=== PATIENT | female | born 1975 | race Caucasian/White ===

== ENCOUNTER 2016-05-23 03:23 | Emergency (ER) | payer SELFPAY ==
[2016-05-23 05:07] LABS: HEMOGLOBIN 8.4 gm/dl (12.3-15.3); RED BLOOD COUNT 4.28 M/UL (4.00-5.10); WHITE BLOOD COUNT 9.2 K/UL (4.5-11.0)
[2016-05-23 05:18] LABS: BUN/CREATININE RATIO 13 (0-10)
== END 2016-05-23 06:40 | disposition home or self-care (01) ==
LOC: ER1 03:23
PROVIDERS: Physician Assistant
DX: G89.29 Other chronic pain (principal); M25.512 Pain in left shoulder; D64.9 Anemia, unspecified; E06.3 Autoimmune thyroiditis; Z90.89 Acquired absence of other organs
CPT/HCPCS: 36415; 80053; 85025; 96361; 96365; 99283; J2550; J7030; J7050

== ENCOUNTER → 2020-02-07 | Outpatient (CLI) | payer BC, OTHER ==
[~2020-02-07] MED LIST: CIPRO500 MG PO; FLOMAX0.4 MG PO; OMNICEF 300 MG300 MG PO; PERCOCET 5/325 T1 EA PO
[2020-02-07 11:13] LABS: HEMOGLOBIN 11.1 gm/dl (12.3-15.3); RED BLOOD COUNT 3.64 M/UL (4.00-5.10)
[2020-02-07 11:31] LABS: BUN/CREATININE RATIO 11 (0-10)
== END ==
LOC: OPSV 10:00
PROVIDERS: Hospitalist
DX: C91.01 Acute lymphoblastic leukemia, in remission (principal)
CPT/HCPCS: 80053; 85025

== ENCOUNTER → 2020-02-14 | Outpatient (CLI) | payer BC, OTHER ==
[2020-02-14 10:29] LABS: HEMOGLOBIN 11.1 gm/dl (12.3-15.3); RED BLOOD COUNT 3.75 M/UL (4.00-5.10); WHITE BLOOD COUNT 4.5 K/UL (4.5-11.0)
[2020-02-14 11:15] LABS: BUN/CREATININE RATIO 14 (0-10)
== END ==
LOC: OPSV 10:00
PROVIDERS: Hospitalist
DX: C91.01 Acute lymphoblastic leukemia, in remission (principal)
CPT/HCPCS: 80053; 85025

== ENCOUNTER → 2020-02-21 | Outpatient (CLI) | payer BC, OTHER ==
[2020-02-21 10:53] LABS: HEMOGLOBIN 11.5 gm/dl (12.3-15.3); RED BLOOD COUNT 3.84 M/UL (4.00-5.10); WHITE BLOOD COUNT 6.9 K/UL (4.5-11.0)
[2020-02-21 11:24] LABS: BUN/CREATININE RATIO 23 (0-10)
== END ==
LOC: OPSV 10:00
PROVIDERS: Hospitalist
DX: C91.01 Acute lymphoblastic leukemia, in remission (principal); Z45.2 Encounter for adjustment and management of vascular access device
CPT/HCPCS: 80053; 85025

== ENCOUNTER → 2020-02-28 | Outpatient (CLI) | payer BC, OTHER ==
[2020-02-28 10:36] LABS: HEMOGLOBIN 12.3 gm/dl (12.3-15.3); RED BLOOD COUNT 4.2 M/UL (4.00-5.10); WHITE BLOOD COUNT 4.6 K/UL (4.5-11.0)
[2020-02-28 11:00] LABS: BUN/CREATININE RATIO 20 (0-10)
== END ==
LOC: OPSV 10:00
PROVIDERS: Hospitalist
DX: C91.01 Acute lymphoblastic leukemia, in remission (principal)
CPT/HCPCS: 80053; 85025

== ENCOUNTER → 2020-03-06 | Outpatient (CLI) | payer BC, OTHER ==
[2020-03-06 10:50] LABS: HEMOGLOBIN 10.8 gm/dl (12.3-15.3); RED BLOOD COUNT 3.69 M/UL (4.00-5.10); WHITE BLOOD COUNT 3.1 K/UL (4.5-11.0)
[2020-03-06 11:16] LABS: BUN/CREATININE RATIO 15 (0-10)
== END ==
LOC: OPSV 10:00
PROVIDERS: Hospitalist
DX: C91.01 Acute lymphoblastic leukemia, in remission (principal); Z88.8 Allergy status to other drugs, medicaments and biological substances; Z91.040 Latex allergy status
CPT/HCPCS: 80053; 85025

== ENCOUNTER → 2020-04-24 | Outpatient (CLI) | payer BC, OTHER ==
[2020-04-24 14:07] LABS: HEMOGLOBIN 12.8 gm/dl (12.3-15.3); RED BLOOD COUNT 4.55 M/UL (4.00-5.10); WHITE BLOOD COUNT 1.9 K/UL (4.5-11.0)
[2020-04-24 14:34] LABS: BUN/CREATININE RATIO 22 (0-10)
== END ==
LOC: LAB 13:26
PROVIDERS: Nurse Practitioner Family
DX: C91.00 Acute lymphoblastic leukemia not having achieved remission (principal)
CPT/HCPCS: 36415; 80053; 83615; 85025

== ENCOUNTER → 2020-05-31 | Outpatient (CLI) | payer BC, OTHER ==
[2020-05-31 15:17] LABS: HEMOGLOBIN 12.1 gm/dl (12.3-15.3); RED BLOOD COUNT 4.45 M/UL (4.00-5.10); WHITE BLOOD COUNT 5.6 K/UL (4.5-11.0)
[2020-05-31 15:37] LABS: BUN/CREATININE RATIO 13 (0-10)
== END ==
LOC: LAB 14:33
PROVIDERS: Nurse Practitioner Family
DX: C91.00 Acute lymphoblastic leukemia not having achieved remission (principal)
CPT/HCPCS: 36415; 80053; 83615; 85025

== ENCOUNTER 2020-07-11 12:05 | Emergency (ER) | payer BC, OTHER ==
[~2020-07-11 12:05] MED LIST changes: -CIPRO500 MG PO
[2020-07-11 12:42] LABS: HEMOGLOBIN 13.5 gm/dl (12.3-15.3); RED BLOOD COUNT 4.8 M/UL (4.00-5.10); WHITE BLOOD COUNT 3.3 K/UL (4.5-11.0)
[2020-07-11 13:12] LABS: BUN/CREATININE RATIO 9 (0-10)
[2020-07-11] MEDS ORDERED: CIPRO500 MG PO (18:13)
== END 2020-07-11 19:05 | disposition home or self-care (01) ==
LOC: ER1 12:05
PROVIDERS: Physician Assistant
DX: K80.00 Calculus of gallbladder with acute cholecystitis without obstruction (principal); Z90.89 Acquired absence of other organs; Z79.899 Other long term (current) drug therapy
CPT/HCPCS: 76705; 80053; 81001; 82150; 83690; 84703; 85025; 96374; 99284; J2543; Q9967

== ENCOUNTER 2020-10-12 18:32 | Inpatient (IN) | payer BC, OTHER ==
[~2020-10-12] VITALS: Ht 162.6 cm; Wt 88.9 kg
[~2020-10-12 18:32] MED LIST changes: +CIPRO500 MG PO
[2020-10-12 19:39] LABS: HEMOGLOBIN 12.9 gm/dl (12.3-15.3); RED BLOOD COUNT 4.94 M/UL (4.00-5.10); WHITE BLOOD COUNT 4.4 K/UL (4.5-11.0)
[2020-10-12 20:06] LABS: BUN/CREATININE RATIO 13 (0-10)
[2020-10-13 02:29] LABS: HEMOGLOBIN 11.2 gm/dl (12.3-15.3); WHITE BLOOD COUNT 3.9 K/UL (4.5-11.0)
[2020-10-13 02:42] LABS: RED BLOOD COUNT 4.26 M/UL (4.00-5.10)
[2020-10-13 03:06] LABS: BUN/CREATININE RATIO 13 (0-10)
[2020-10-13] MEDS ORDERED: ONDANSETRON ODT8 MG PO (12:15)
[2020-10-13] MEDS ORDERED: ICLUSIG15 MG PO (12:16)
[2020-10-13] MEDS ORDERED: AMLODIPINE BESY10 MG PO (12:16)
[2020-10-13] MEDS ORDERED: LEVOTHYROXINE137 MCG PO (12:17)
[2020-10-13] MEDS ORDERED: SULFAMETHOXAZO1 EACH PO (12:17)
[2020-10-13 22:51] LABS: ADENOVIRUS F 40/41 Not Detected (Negative); ASTROVIRUS Not Detected (Negative); CAMPYLOBACTER Not Detected (Negative); CLOSTRIDIUM DIFFICILE TOX A/B Not Detected (Negative); CRYPTOSPORIDIUM Not Detected (Negative); E.COLI 0157 Not Detected (Negative); ENTAMOEBA HISTOLYTICA Not Detected (Negative); ENTEROAGGREGATIVE E.COLI (EAEC Not Detected (Negative); ENTEROPATHOGENIC E.COLI (EPEC) Not Detected (Negative); ENTEROTOXIGENIC E.COLI (ETEC) Not Detected (Negative); GIARDIA LAMBLIA Not Detected (Negative); NOROVIRUS GI/GII Not Detected (Negative); PLESIOMONAS SHIGELLOIDES Not Detected (Negative); ROTOVIRUS A Not Detected (Negative); SALMONELLA Not Detected (Negative); SAPOVIRUS Not Detected (Negative); SHIG/ENTEROINVAS.ECOLI (EIEC) Not Detected (Negative); SHIGA-LIK TOX.PRO.E.COLI (STEC Not Detected (Negative); VIBRIO Not Detected (Negative); VIBRIO CHOLERAE Not Detected (Negative); YERSINIA ENTEROCOLITICA Not Detected (Negative)
[2020-10-14 06:31] LABS: HEMOGLOBIN 10.3 gm/dl (12.3-15.3); RED BLOOD COUNT 3.94 M/UL (4.00-5.10); WHITE BLOOD COUNT 3.8 K/UL (4.5-11.0)
[2020-10-14 06:56] LABS: BUN/CREATININE RATIO 18 (0-10)
[2020-10-15 08:25] LABS: HEMOGLOBIN 11.2 gm/dl (12.3-15.3); RED BLOOD COUNT 4.31 M/UL (4.00-5.10); WHITE BLOOD COUNT 4.1 K/UL (4.5-11.0)
[2020-10-15 08:39] LABS: BUN/CREATININE RATIO 21 (0-10)
[2020-10-16 10:21] LABS: HEMOGLOBIN 11.8 gm/dl (12.3-15.3); RED BLOOD COUNT 4.55 M/UL (4.00-5.10); WHITE BLOOD COUNT 4.6 K/UL (4.5-11.0)
[2020-10-16 10:42] LABS: BUN/CREATININE RATIO 18 (0-10)
[2020-10-17] MEDS ORDERED: IPRATROPIU0.2 MG/1 M NEB (15:32)
[2020-10-17] MEDS ORDERED: DEXAMETHASONE 44 MG PO (15:32)
[2020-10-17] MEDS ORDERED: BENZONATATE100 MG PO (15:32)
[2020-10-17] MEDS ORDERED: VITAMIN D325 MCG PO (15:32)
[2020-10-17] MEDS ORDERED: PROTONIX 40 MG40 M1 PO (15:32)
[2020-10-17] MEDS ORDERED: VITAMIN C 500500 MG PO (15:32)
[2020-10-17] MEDS ORDERED: LEVALBUTER1.25 MG/3 NEB (15:32)
[2020-10-17] MEDS ORDERED: ZINC SULFATE50 MG PO (15:32)
[2020-10-17] MEDS ORDERED: OMNICEF 300 MG300 MG PO (15:32)
[2020-10-17] MEDS ORDERED: POTASSIUM CHLO10 MEQ PO (15:44)
== END 2020-10-17 17:40 | disposition home health service (06) | DRG 177 ==
LOC: ER1 18:32 → MED SURG 4 20:45 → CDU 20:45 → MED SURG 4 10-13 10:47
PROVIDERS: Emergency Medicine; Internal Medicine; ADMIT Internal Medicine
PROC: 8E0ZXY6 Isolation (ICD-10-PCS; principal; 2020-10-12)
PROC: XW033E5 Introduction of Remdesivir Anti-infective into Peripheral Vein, Percutaneous Approach, New Technology Group 5 (ICD-10-PCS; 2020-10-12)
PROC: 3E0333Z Introduction of Anti-inflammatory into Peripheral Vein, Percutaneous Approach (ICD-10-PCS; 2020-10-12)
DX: U07.1 COVID-19 (principal); J12.82 Pneumonia due to coronavirus disease 2019; J96.01 Acute respiratory failure with hypoxia; E03.9 Hypothyroidism, unspecified; A08.4 Viral intestinal infection, unspecified; T38.0X5A Adverse effect of glucocorticoids and synthetic analogues, initial encounter; I10 Essential (primary) hypertension; E09.65 Drug or chemical induced diabetes mellitus with hyperglycemia; Z91.040 Latex allergy status; Z88.8 Allergy status to other drugs, medicaments and biological substances; Z88.6 Allergy status to analgesic agent; Z79.899 Other long term (current) drug therapy; Z85.6 Personal history of leukemia
CPT/HCPCS: 36415; 36600; 71045; 80048; 80053; 82550; 82553; 82728; 82803; 82962; 83036; 83540; 83550; 83605; 83615; 83690; 83735; 83874; 83880; 84100; 84484; 84703; 85025; 85027; 85610; 85730; 86140; 87040; 87507; 93005; 94640; 94760; 96374; 99285; J0456; J0696; J1100; J1650; J2405; J7030; Q9967; U0002